=== PATIENT | male | born 1985 | race Caucasian/White ===

== ENCOUNTER 2017-09-23 20:16 | Emergency (ER) | payer BC, MEDICAID ==
[~2017-09-23] VITALS: Ht 162.6 cm; Wt 65.8 kg
[~2017-09-23 20:16] MED LIST: Amoxicillin Trihydrate PO; Folic Acid PO; Gabapentin PO; HYDR-3895 PO; Ibuprofen PO; LACT1CAP57 PO; METH-33 PO; QUET100T PO; RANI150T8 PO
--- NOTE | 2017-09-23 20:41 | NUR ---
Patient discharged to home in stable conditon. Written and verbal after care instructions given. Patient verbalizes understanding of instructions.
[2017-09-23 20:42] VITALS: BP 114/61
== END 2017-09-23 20:42 | disposition home or self-care (01) ==
LOC: ER 20:17
DX: Z76.0 Encounter for issue of repeat prescription (principal); Z91.018 Allergy to other foods; Z79.1 Long term (current) use of non-steroidal anti-inflammatories (NSAID); Z79.2 Long term (current) use of antibiotics; Z79.899 Other long term (current) drug therapy
CPT/HCPCS: A4663

== ENCOUNTER 2017-10-14 17:06 | Emergency (ER) | payer MEDICAID ==
[~2017-10-14] VITALS: Ht 162.6 cm; Wt 65.8 kg
--- NOTE | 2017-10-14 17:15 | NUR ---
MSE DONE BY DR FLORES IN ROOM 05A. PATIENT A & O X4.
--- NOTE | 2017-10-14 17:35 | NUR ---
Patient discharged to home in stable conditon. Written and verbal after care instructions given. Patient verbalizes understanding of instructions.
[2017-10-14 17:40] VITALS: BP 118/74
== END 2017-10-14 17:45 | disposition home or self-care (01) ==
LOC: ER 17:08
DX: Z76.0 Encounter for issue of repeat prescription (principal); Z91.018 Allergy to other foods; Z79.1 Long term (current) use of non-steroidal anti-inflammatories (NSAID); Z79.2 Long term (current) use of antibiotics; Z79.899 Other long term (current) drug therapy
CPT/HCPCS: 99283; A4663

== ENCOUNTER 2017-10-30 19:13 | Emergency (ER) | payer MEDICAID ==
[~2017-10-30] VITALS: Ht 162.6 cm; Wt 65.8 kg
[~2017-10-30 19:13] MED LIST changes: -Amoxicillin Trihydrate PO; -Folic Acid PO; -HYDR-3895 PO; -Ibuprofen PO; -LACT1CAP57 PO; -METH-33 PO; -QUET100T PO; -RANI150T8 PO
--- NOTE | 2017-10-30 19:35 | NUR ---
NITISH RENE at bedside for patient evaluation.
[2017-10-30 19:43] VITALS: BP 121/78
--- NOTE | 2017-10-30 19:44 | NUR ---
Patient discharged to home in stable conditon. Written and verbal after care instructions given. Patient verbalizes understanding of instructions. Ambulated from ER with stable gait. All belongings with patient.
== END 2017-10-30 19:44 | disposition home or self-care (01) ==
LOC: ER 19:17
DX: Z76.0 Encounter for issue of repeat prescription (principal); Z91.018 Allergy to other foods; Z79.899 Other long term (current) drug therapy
CPT/HCPCS: A4663

== ENCOUNTER 2017-12-06 14:54 | Emergency (ER) | payer MEDICAID ==
[~2017-12-06] VITALS: Ht 162.6 cm; Wt 65.8 kg
--- NOTE | 2017-12-06 15:16 | NUR ---
Patient discharged to home in stable conditon & brisk steady gait. Written and verbal after care instructions given.Patient verbalizes understanding of instructions.
== END 2017-12-06 15:17 | disposition home or self-care (01) ==
LOC: ER 14:57
DX: G89.29 Other chronic pain (principal); M79.662 Pain in left lower leg; Z76.0 Encounter for issue of repeat prescription; F11.10 Opioid abuse, uncomplicated; Z91.018 Allergy to other foods
CPT/HCPCS: 99283; A4663

== ENCOUNTER 2018-05-23 02:33 | Emergency (ER) | payer SELFPAY ==
[~2018-05-23] VITALS: Ht 162.6 cm; Wt 65.8 kg
[2018-05-23] MEDS ORDERED: AMOXicillin 250 MG CAPSULE PO ONE (03:00)
[2018-05-23] MEDS ORDERED: AMOXicillin 250 MG CAPSULE ONE (03:05)
--- NOTE | 2018-05-23 03:09 | NUR ---
Patient discharged to home in stable conditon. Written and verbal after care instructions given. Patient verbalizes understanding of instructions.
== END 2018-05-23 03:10 | disposition home or self-care (01) ==
LOC: ER 02:34
DX: J32.9 Chronic sinusitis, unspecified (principal); F17.200 Nicotine dependence, unspecified, uncomplicated; Z91.018 Allergy to other foods; Z79.899 Other long term (current) drug therapy
CPT/HCPCS: A4663